=== PATIENT | female | born 1995 | race Caucasian/White ===

== ENCOUNTER → 2016-09-15 | Outpatient (CLI) | payer MEDICAID ==
--- NOTE | 2016-09-01 15:08 | US ---
EXAMINATION TYPE: US OB anatomy transabd second trimester DATE OF EXAM: 09/01/2016 2:18 PM COMPARISON: OB ultrasound July 14, 2016 first trimester HISTORY: LGA TECHNIQUE: Transabdominal (TA) pelvic ultrasound EXAM MEASUREMENTS: GESTATIONAL AGE / DATING Physician Established: (19 weeks/3 days) EDC: 01/23/17 Dates by LMP: unknown Dates by First Scan: (20 weeks/0 days) EDC: 01/19/17 Dates by Current Scan for: (20 weeks/1 days) EDC: 01/18/17 SURVEY IUP: Single PLACENTA: Anterior PREVIA: No previa CAROL: 10.7 cm Normal CERVICAL LENGTH (transabdominal: norm > 3.0cm): 4.1 cm BIOMETRY PRESENTATION: Variable LIE: Transverse lie with head maternal LT BPD: 4.5 cm 19 weeks / 5 days HC: 17.4 cm 20 weeks / 0 days AC: 15.1 cm 20 weeks / 3 days FL: 3.2 cm 20 weeks / 0 days ESTIMATED WEIGHT IN GRAMS: 333 grams ESTIMATED WEIGHT IN LBS/OZS: 0 lbs. 12 oz. WEIGHT PERCENTAGE BASED ON ESTABLISHED DATE: 84 % HC/AC: 1.15 FL/AC: 21% HEART RATE: 147 bpm RHYTHM: Normal ANATOMY SEEN (within normal limits): * Lateral Vent (< 1 cm) 0.6 cm * Cisterna Magna (< 1.1 cm) 0.4 cm * Nuchal Fold (< 0.6 cm) 0.3 cm * Cerebellum (varies with age) 1.8 cm Choroid Plexus (bilateral) Midline Falx Cavus Septi Pellucidi Four Chamber Heart Outflow tracts: LVOT/RVOT Stomach Situs Nose / Lips Diaphragm Kidneys (bilateral) Bladder Cord Insert Three Vessel Cord Arms (bilateral) Legs (bilateral) ANATOMY NOT SEEN: due to position Longitudinal Spine Transverse Spine TECHNOLOGIST IMPRESSION: Single viable IUP 20wks/1day with TAY of 01/18/17. Patient scheduled for OB callback 09/15/16 at 2:20 to image spine Single live intrauterine gestation is present. heart tones are regular and measure 147 bpm whic h is within normal limits. A variable presentation to fetus is currently seen. There is no ultrasound evidence for placenta previa. Amniotic fluid index is within normal limits. biometry measureme nts as above are within normal limits. Detailed anatomical survey shows no suspicious abnormality dur ing real-time scanning per technologist. Suboptimal evaluation of spine on 2 planes is noted due to f etal positioning. Kidneys are somewhat difficult to visualize on still images saved. IMPRESSION: As above
--- NOTE | 2016-09-15 15:39 | US ---
EXAMINATION TYPE: US OB Call Back DATE OF EXAM: 09/15/2016 3:06 PM COMPARISON: Prior OB ultrasound September 01, 2016. CLINICAL HISTORY: OB CALL BACK. GESTATIONAL AGE / DATING Dates by Initial Survey Scan: (19 weeks/3 days) EDC: 01/23/2017 HEART RATE: 144 bpm RHYTHM: Normal ANATOMY SEEN (second anatomic survey look): Longitudinal Spine: seen wnl Transverse Spine: seen wnl TECHNOLOGIST IMPRESSION: Single live intrauterine gestation is redemonstrated. On today's study real-time imaging of the spine appeared within normal limits. Saved images appear unremarkable. IMPRESSION: As above.
== END | disposition home or self-care (01) ==
LOC: RADUSWWP 09-01 13:23
PROVIDERS: ATTEND Obstetrics & Gynecology
DX: O36.62X0 Maternal care for excessive fetal growth, second trimester, not applicable or unspecified (principal); Z3A.19 19 weeks gestation of pregnancy
CPT/HCPCS: 76811

== ENCOUNTER → 2016-10-13 | Outpatient (CLI) | payer MEDICAID ==
[2016-10-13 13:04] LABS: CH 31.6; CHCM 35.5; HCT 32.5 % (34.0-46.0); HDW 3.24; MCH 30.2 pg (25.0-35.0); MCHC 33.7 g/dL (31.0-37.0); MCV 89.6 fL (80.0-100.0); Mean Platelet Volume 8.5; RBC 3.63 m/uL (3.80-5.40); RDW 14.3 % (11.5-15.5); WBC 9.6 k/uL (3.8-10.6)
== END | disposition home or self-care (01) ==
LOC: LABWHC1 11:47
PROVIDERS: ATTEND Obstetrics & Gynecology
DX: Z34.02 Encounter for supervision of normal first pregnancy, second trimester (principal); Z3A.00 Weeks of gestation of pregnancy not specified
CPT/HCPCS: 36415; 82950; 85027

== ENCOUNTER → 2016-10-19 | Outpatient (CLI) | payer MEDICAID ==
[2016-10-19 12:51] LABS: Glucose 3 Hour, Gest 94 mg/dL
== END | disposition home or self-care (01) ==
LOC: LABWHC1 08:36
PROVIDERS: ATTEND Obstetrics & Gynecology
DX: O99.810 Abnormal glucose complicating pregnancy (principal); Z3A.00 Weeks of gestation of pregnancy not specified
CPT/HCPCS: 36415; 82951; 82952

== ENCOUNTER → 2016-11-22 | Outpatient (CLI) | payer MEDICAID ==
--- NOTE | 2016-11-22 22:34 | US ---
EXAMINATION TYPE: US OB anatomy transabd DATE OF EXAM: 11/22/2016 5:06 PM COMPARISON: NONE HISTORY: 21-year-old female O26.13 Insufficient maternal weight gain TECHNIQUE: Transabdominal (TA) EXAM MEASUREMENTS: GESTATIONAL AGE / DATING Physician Established: (31 weeks/1 day) EDC: 01/23/2017 Dates by LMP: unknown Dates by First Scan: (31 weeks/5 days) EDC: 01/19/2017 Dates by Current Scan for: (32 weeks/1 day) EDC: 01/16/2017 SURVEY IUP: Single PLACENTA: Anterior PREVIA: No previa CAROL: 18.4 cm Normal CERVICAL LENGTH (transabdominal: norm > 3.0cm): 4.7 cm BIOMETRY PRESENTATION: Vertex LIE: Longitudinal BPD: 82 cm 33 weeks / 0 days HC: 29.9 cm 33 weeks / 1 day AC: 28.9 cm 33 weeks / 0 days FL: 6.1 cm 31 weeks / 4 days ESTIMATED WEIGHT IN GRAMS: 2004 grams ESTIMATED WEIGHT IN LBS/OZ: 4 lbs. 7 oz. WEIGHT PERCENTAGE BASED ON ESTABLISHED DATE: 84 % (vs 84% on 09/01/16). HC/AC: 1.03 Normal FL/AC: 20.99 Normal HEART RATE: 140 bpm RHYTHM: Normal ANATOMY SEEN (within normal limits): Lateral Vent (< 1 cm) 0.8 cm Cerebellum (varies with age) 3.9 cm Choroid Plexus (bilateral) Midline Falx Cavus Septi Pellucidi Four Chamber Heart Stomach Situs Nose / Lips Diaphragm Kidneys (bilateral) Bladder Three Vessel Cord ANATOMY NOT SEEN OR SUBOPTIMALLY VISUALIZED due to bone shadowing or crowding in third trimeste r: Cisterna Magna (< 1.1 cm) Longitudinal Spine as S Spine not seen Transverse Spine Arms (bilateral) Legs (bilateral) - femur opposite poorly seen. Outflow tracts: LVOT/RVOT Cord Insert MAGNETO REPAIRER NOTES: Single, viable, IUP, 32 weeks/1 day, EDC: 01/16/2017; HR 140BPM. IMPRESSION: Single live intrauterine with established gestational age of 31 weeks 1 day. Current ultras ound biometry is larger but concordant (32 weeks 1 day) placing the child at the 84th percentile for weight. There has been appropriate interval growth from 09/01/2016 with stable weight percentile.
== END ==
LOC: RADUSWWP 16:21
PROVIDERS: ATTEND Obstetrics & Gynecology
DX: O26.13 Low weight gain in pregnancy, third trimester (principal); Z3A.32 32 weeks gestation of pregnancy
CPT/HCPCS: 76811

== ENCOUNTER → 2016-12-22 | Outpatient (CLI) | payer MEDICAID, OTHER ==
--- NOTE | 2016-12-22 12:19 | US ---
EXAMINATION TYPE: US OB anatomy transabd DATE OF EXAM: 12/22/2016 9:35 AM COMPARISON: 11/22/2016 HISTORY: 21-year-old female [id number] Large for dates 3rd trimester. LGA, pt has no complaints at th is time TECHNIQUE: Transabdominal (TA) FINDINGS: EXAM MEASUREMENTS: GESTATIONAL AGE / DATING Physician Established: (35 weeks/3 days) EDC: 01/23/2017 Dates by LMP: Unknown Dates by First Scan: (36 weeks/0 days) EDC: 01/19/2017 Dates by Current Scan for: (36 weeks/3 days, appropriate interval growth from 11/22/16) EDC: 01/16/2017 SURVEY IUP: Single PLACENTA: Anterior PREVIA: No previa CAROL: 13.3 cm Normal CERVICAL LENGTH (transabdominal: norm > 3.0cm): 3.1 cm BIOMETRY PRESENTATION: Vertex BPD: 9.2 cm 37 weeks / 3 days HC: 32.6 cm 36 weeks / 6 days AC: 31.9 cm 35 weeks / 6 days FL: 7.0 cm 35 weeks / 5 days ESTIMATED WEIGHT IN GRAMS: 2850 grams ESTIMATED WEIGHT IN LBS/OZS: 6 lbs. 5 oz. WEIGHT PERCENTAGE BASED ON ESTABLISHED DATE: 68.2 % vs (84%, previously) HC/AC: 1.02 Normal FL/AC: 22 Normal HEART RATE: 146 bpm RHYTHM: Normal ANATOMY SEEN (within normal limits): Lateral Vent (< 1 cm) 0.5 cm Midline Falx Cavus Septi Pellucidi Four Chamber Heart Outflow tracts: LVOT Stomach Situs Nose / Lips Diaphragm Kidneys (bilateral) Bladder Three Vessel Cord ANATOMY NOT SEEN OR SUBOPTIMALLY VISUALIZED: Cisterna Magna (< 1.1 cm) Cerebellum (varies with age) Choroid Plexus (bilateral) RVOT Cord Insert Arms (bilateral) Legs (bilateral) Longitudinal Spine (skin line not well delineated) Transverse Spine HOSPITAL RECEIVING CLERK NOTES: Single, viable IUP/ Growth parameters wnl/ No abnormality seen at this time IMPRESSION: Single live intrauterine with established gestational age of 35 weeks 3 days. Current ultra sound biometry (36 weeks 3 days) remains one week larger but still concordant and with growth from exactly as expected.
== END | disposition home or self-care (01) ==
LOC: RADUSWWP 08:55
PROVIDERS: ATTEND Obstetrics & Gynecology
DX: O36.63X0 Maternal care for excessive fetal growth, third trimester, not applicable or unspecified (principal); Z3A.35 35 weeks gestation of pregnancy
CPT/HCPCS: 76811

== ENCOUNTER 2017-01-23 05:27 | Inpatient (IN) | payer MEDICAID, OTHER ==
[2017-01-23] MEDS ORDERED: METHYLERGONOVINE 0.2 MG/ML 1 ML AMP IM PRN (05:37)
[2017-01-23] MEDS ORDERED: OXYTOCIN 20 UNITS/1000 ML NS 1,000 ML IV SCH (05:37)
[2017-01-23] MEDS ORDERED: LIDOCAINE 1% (PF) 10 MG/ML (30 ML SDV) SQ PRN (05:37)
[2017-01-23] MEDS ORDERED: TERBUTALINE 1 MG/ML VIAL SQ PRN (05:37)
[2017-01-23] MEDS ORDERED: OXYTOCIN 10 UNIT/ML 1 ML VIAL IM PRN (05:37)
[2017-01-23] MEDS ORDERED: CARBOPROST TROMETHAMINE 250 MCG/ML 1 ML AMP IM PRN (05:37)
[2017-01-23] MEDS: LACTATED RINGERS 1,000 ML IV SCH ×2 (05:46→10:40)
[2017-01-23 05:51] LABS: Aty Lym Flag Slight; CH 31.4; CHCM 35.8; HCT 38.3 % (34.0-46.0); HDW 3.03; HGB 13.1 gm/dL (11.4-16.0); MCH 30.3 pg (25.0-35.0); MCHC 34.3 g/dL (31.0-37.0); MCV 88.4 fL (80.0-100.0); Mean Platelet Volume 8.6; RBC 4.33 m/uL (3.80-5.40); RDW 14.3 % (11.5-15.5); WBC 11.3 k/uL (3.8-10.6); WBC (Perox) 11.91
--- NOTE | 2017-01-23 06:11 | P.HPOB ---
History of Present Illness H&P Date: 01/23/17 Chief Complaint: Patient is presenting for requested induction of labor. This patient is a pleasant 21-year-old 1 para 0 female estimated date of confinement 01/23/2017 estimated gestational age 40-0/7 weeks who presents to labor and delivery for requested induction of labor. Patient's care has been uncomplicated with the exception of low maternal weight gain. Patient's had normal growth ultrasounds and no other complications. Review of Systems Constitutional: Denies chills, Denies fever Ears, nose, mouth and throat: Denies headache, Denies sore throat Cardiovascular: Denies chest pain, Denies shortness of breath Respiratory: Denies cough Gastrointestinal: Reports heartburn Genitourinary: Reports Menstruation: Reports amenorrhea Musculoskeletal: Denies myalgias Integumentary: Denies pruritus, Denies rash Neurological: Denies numbness, Denies weakness Psychiatric: Denies anxiety, Denies depression Past Medical History Additional Past Medical History / Comment(s): 02/02/15 Pt presented to [facility] ER with c/o severe RLQ abdominal pain. Other HX: polycystic ovaries, epistaxis. History of Any Multi-Drug Resistant Organisms: None Reported Past Surgical History: Adenoidectomy, Tonsillectomy Additional Past Surgical History / Comment(s): tonsillectomy/adenoidectomy with anterior/septal cauterization. Past Anesthesia/Blood Transfusion Reactions: No Reported Reaction Past Psychological History: No Psychological Hx Reported Smoking Status: Never smoker Past Alcohol Use History: None Reported Past Drug Use History: None Reported - Past Family History Brother(s) Family Medical History: Hypertension Additional Family Medical History / Comment(s): 1 kidney Father Family Medical History: No Reported History Mother Family Medical History: No Reported History Medications and Allergies Home Medications Medication Instructions Recorded Confirmed Type Pnv,Calcium 72/Iron/Folic Acid 1 tab PO DAILY 01/23/17 01/23/17 History [ Plus Tablet] Allergies Allergy/AdvReac Type Severity Reaction Status Date / Time naproxen AdvReac Nausea & Verified 01/23/17 05:36 Vomiting Exam - Vital Signs Vital signs: Vital Signs Temp Pulse Resp BP Pulse Ox 01/23/17 05:38 96.6 F L 100 16 137/91 100 Intake and Output 01/22/17 01/22/1717 14:59 22:59 06:59 Other: Weight 73.936 kg Patient Weight 01/23/17 06:59 Weight 73.936 kg - OBG Physical Exam Abdomen: bowel sounds normal, no diffuse tenderness, no bruit present, no guarding noted, no hepatomegaly, no splenomegaly, no mass Vulva: both: normal Vagina: normal moisture, no discharge Cervix: no lesion (Cervix is 1-2 cm dilated 50% effaced.), no discharge Uterus: enlarged (Fundal height is consistent with a term .) Results blood work shows she is A positive, rubella immune, RPR is nonreactive , hepatitis B is negative, group B strep was negative, Glucola was abnormal with a normal three-hour gtt. Ultrasounds have shown normal growth. Result Diagrams: 01/23/17 05:41 Abnormal Lab Results - Last 24 Hours (Table) 01/23/17 Range/Units 05:41 WBC 11.3 H (3.8-10.6) k/uL Assessment and Plan (1) Third trimester Narrative/Plan: This is a pleasant 21-year-old 1 para 0 female 40-0/7 weeks gestation admitted to labor and delivery for requested induction of labor. Plan is induction of labor and anticipate vaginal delivery. Status: Acute
[2017-01-23 06:25] LABS: Add Differential Manual Differential
[2017-01-23 06:27] LABS: Manual Review Performed; Nucleated Red Blood Cells 0 /100 WBC (0-0); Reactive Lymphocytes Present; Total Cells Counted 100
[2017-01-23] MEDS ORDERED: BUTORPHANOL 1 MG/ML 1 ML VIAL IV PRN (08:39)
[2017-01-23] MEDS ORDERED: SODIUM CHLORIDE 0.9% 100 ML BAG ONE (10:45)
[2017-01-23] MEDS ORDERED: BUPIVACAINE (PF) 0.25% 30 ML VIAL ONE (10:45)
[2017-01-23] MEDS ORDERED: fentaNYL (PF) 50 MCG/ML 5 ML AMP ONE (10:45)
[2017-01-23] MEDS ORDERED: BUPIVACAINE (PF) 0.25% 25 ML, fentaNYL (PF) 200 MCG in SODIUM CHLORIDE 0.9% 71 ML EPIDURAL ONE (11:25)
[2017-01-23] MEDS ORDERED: diphenhydrAMINE 50 MG/ML 1 ML VIAL IVP PRN (17:11)
[2017-01-23] MEDS ORDERED: HYDROCORTISONE 2.5% RECTAL CREAM 30 GM TUBE RECTAL PRN (17:11)
[2017-01-23] MEDS ORDERED: diphenhydrAMINE 25 MG CAP PO PRN (17:11)
[2017-01-23] MEDS ORDERED: SIMETHICONE 80 MG CHEWABLE PO PRN (17:11)
[2017-01-23] MEDS ORDERED: BENZOCAINE/MENTHOL SPRAY 1 GM/SPRAY AEROSOL TOPICAL PRN (17:11)
[2017-01-23] MEDS ORDERED: LANOLIN CREAM 5 GM TUBE TOPICAL PRN (17:11)
[2017-01-23] MEDS ORDERED: Acetaminophen-Codeine 300-30mg TAB PO PRN ×2 (17:11)
[2017-01-23] MEDS ORDERED: ZOLPIDEM 5 MG TAB PO PRN (17:11)
[2017-01-23] MEDS ORDERED: ACETAMINOPHEN TAB 325 MG TAB PO PRN (17:11)
[2017-01-23] MEDS ORDERED: WITCH HAZEL 1 EACH MED..PAD TOPICAL PRN (17:11)
[2017-01-23] MEDS ORDERED: BISACODYL 10 MG SUPP RECTAL PRN (17:11)
--- NOTE | 2017-01-23 17:25 | P.PROBDLV ---
Vaginal Delivery Note - . Vaginal Delivery Note: Normal vaginal delivery viable male infant Apgars are 8 and 9 delivery time is 1701 hrs. . Please see dictated H&P for intimate details of this patient's admission. Brief summary is a pleasant 21-year-old 1 para 0 female 40-0/7 weeks gestation admitted to labor and delivery for induction of labor. Patient is admitted and has artificial rupture membranes at 2 cm dilated for clear fluid. Labor is induced with Pitocin per protocol. Patient does receive an epidural for pain relief. Patient's labor progresses quickly she gets to complete. Patient pushes for approximately 15 minutes and pushes the head to the perineum. Posterior perineum was infiltrated with 1% lidocaine. And a midline episiotomy is made. We then have controlled delivery of the infant's head over the perineum. Mouth and nares are bulb suctioned. There is no evidence of nuchal cord. With gentle downward traction we then have deliver the anterior and posterior shoulder and rest this infant's body. This is a vigorous viable male infant Apgars are 8 and 9 delivery time is 1701 hrs. After delivery of the the umbilical cord is doubly clamped and cut it appears to be trivascular. The placenta is then spontaneously delivered intact. Estimated blood loss is 100 mL. Inspection of perineum shows a second-degree laceration which is repaired with 3-0 Vicryl usual fashion. Excellent reapproximation is noted. All counts are correct 3. There are no complications. and mother are stable delivery room.
[2017-01-23] MEDS: IBUPROFEN 600 MG TAB PO PRN (17:36)
[2017-01-23] MEDS: SENNOSIDES-DOCUSATE SODIUM 1 EACH TAB PO SCH ×2 (18:34→21:28)
[2017-01-23 19:52] VITALS: RESP 16
[2017-01-24] MEDS: IBUPROFEN 600 MG TAB PO PRN ×3 (00:05→13:22)
--- NOTE | 2017-01-24 06:53 | P.PNOBGVD ---
Subjective - Subjective Patient reports: Reports appetite normal, Reports voiding normally, Reports pain well controlled, Reports ambulating normally : doing well Objective - Latest Vital Signs Latest vital signs: Vital Signs Temp Pulse Resp BP Pulse Ox 01/24/17 04:00 97.5 F L 77 16 122/72 01/24/17 00:00 98.1 F 97 16 126/80 01/23/17 20:00 98.1 F 84 16 116/66 01/23/17 19:23 98.7 F 78 16 119/67 100 01/23/17 18:53 98 17 108/57 01/23/17 18:23 99 19 107/59 01/23/17 18:08 100 16 113/67 01/23/17 17:53 107 H 18 114/62 01/23/17 17:38 116 H 17 109/64 01/23/17 17:23 97.2 F L 109 H 16 124/60 100 Intake and Output 01/23/17 01/23/17 01/24/17 14:59 22:59 06:59 Intake Total 39.25 Output Total 100 250 Balance -100 -210.75 Intake: Intake, IV Titration 39.25 Amount Oxytocin 20 Units/1000 ml 39.25 Ns 1,000 ml @ 1 MILLIUNIT/MIN 3 mls/hr IV .Q24H [facility] Rx#:[id number] Output: Urine 100 250 Other: # Voids 1 1 1 # Bowel Movements 0 - Exam Lungs: bilateral: normal Chest: Normal S1, Normal S2 Extremities: Present: normal Abdomen: Present: normal appearance, soft Uterus: Present: normal, firm Assessment and Plan (1) Third trimester Narrative/Plan: day #1. Patient is resting without complaints and wishes to go home. Vital signs are stable and she is afebrile. Uterus is firm nontender she 's having normal lochia. I impression is a normal course. Patient wishes to go home today is felt to be stable for discharge home follow up with me in 6 weeks. Current Visit: Yes Status: Acute Code(s): Z33.1 - STATE, INCIDENTAL SNOMED Code(s): 73829960
--- NOTE | 2017-01-24 06:55 | P.DS ---
Providers Date of admission: 01/23/17 05:27 Expected date of discharge: 01/24/17 Attending physician: Carlos Jacobsen Primary care physician: Stated None - Discharge Diagnosis(es) (1) Third trimester Current Visit: Yes Status: Acute Hospital Course: Please see dictated H&P for intimate details of this patient's admission. Brief summary is a pleasant 21-year-old 1 para 0 female 40-0/7 weeks gestation admitted to labor and delivery for elective induction of labor. Patient is admitted she is uncomplicated induction of labor subsequent was on have a vaginal delivery viable male infant. Please see dictated delivery note. day 1 patient's felt be stable for discharge home follow up with me in 6 weeks. Procedures: Induction of labor and normal vaginal delivery. Patient Condition at Discharge: Good Plan - Discharge Summary New Discharge Prescriptions: New Acetaminophen-Codeine 300-30mg [Tylenol w/codeine #3] 1 - 2 each PO Q4HR PRN #30 tab PRN Reason: Mild Pain exceeding Tylenol Ibuprofen [Motrin] 600 mg PO Q6HR PRN #40 tab PRN Reason: Mild Pain Or Fever >= 100.5 No Action Pnv,Calcium 72/Iron/Folic Acid [ Plus Tablet] 1 tab PO DAILY Discharge Medication List Pnv,Calcium 72/Iron/Folic Acid [ Plus Tablet] 1 tab PO DAILY 01/23/17 [ History] Acetaminophen-Codeine 300-30mg [Tylenol w/codeine #3] 1 - 2 each PO Q4HR PRN # 30 tab 01/24/17 [Rx] Ibuprofen [Motrin] 600 mg PO Q6HR PRN #40 tab 01/24/17 [Rx] Follow up Appointment(s)/Referral(s): Carlos Jacobsen MD [STAFF PHYSICIAN] - 03/12/17 10:15 am Patient Instructions/Handouts: Vaginal Delivery (DC) Activity/Diet/Wound Care/Special Instructions: No intercourse or anything per vagina for 6 weeks. Please call if any fever, chills, excessive vaginal bleeding, and/or abdominal pain. Discharge Disposition: HOME SELF-CARE
[2017-01-24 16:25] VITALS: BP 137/73; PULSE 87; TEMP 98.2
== END 2017-01-24 18:10 | disposition home or self-care (01) | DRG 775 ==
LOC: 4FBP 05:27
PROVIDERS: ADMIT Obstetrics & Gynecology; ATTEND Obstetrics & Gynecology
PROC: 10E0XZZ Delivery of Products of Conception, External Approach (ICD-10-PCS; principal; 2017-01-23)
PROC: 0KQM0ZZ Repair Perineum Muscle, Open Approach (ICD-10-PCS; 2017-01-23)
PROC: 0W8NXZZ Division of Female Perineum, External Approach (ICD-10-PCS; 2017-01-23)
PROC: 10907ZC Drainage of Amniotic Fluid, Therapeutic from Products of Conception, Via Natural or Artificial Opening (ICD-10-PCS; 2017-01-23)
PROC: 3E033VJ Introduction of Other Hormone into Peripheral Vein, Percutaneous Approach (ICD-10-PCS; 2017-01-23)
PROC: 00HU33Z Insertion of Infusion Device into Spinal Canal, Percutaneous Approach (ICD-10-PCS; 2017-01-23)
PROC: 3E0R3CZ (ICD-10-PCS; 2017-01-23)
DX: O70.1 Second degree perineal laceration during delivery (principal); Z37.0 Single live birth; E28.2 Polycystic ovarian syndrome; Z3A.40 40 weeks gestation of pregnancy; Z79.899 Other long term (current) drug therapy
CPT/HCPCS: 85025; 88307

== ENCOUNTER → 2018-11-04 | Outpatient (CLI) | payer MEDICAID, BC ==
[2018-11-04 12:14] LABS: HCT 40.6 % (34.0-46.0); HGB 14.4 gm/dL (11.4-16.0); MCH 29.3 pg (25.0-35.0); MCHC 35.5 g/dL (31.0-37.0); MCV 82.5 fL (80.0-100.0); Mean Platelet Volume 7.9; Platelet Count 236 k/uL (150-450); RBC 4.92 m/uL (3.80-5.40); RDW 13.6 % (11.5-15.5); WBC 6.3 k/uL (3.8-10.6)
[2018-11-04 16:36] LABS: Albumin 4.7 g/dL (3.80-4.90); Albumin/Globulin Ratio 2.24 (1.60-3.17); Anion Gap 9.9 mmol/L (4.00-12.00); Calcium 9.5 mg/dL (8.7-10.3); Carbon Dioxide 23.1 mmol/L (21.6-31.8); Globulin 2.1 g/dL (1.6-3.3); LDL Cholesterol,Calculated 69.4 mg/dL (0.0-131.0); Potassium 4.8 mmol/L (3.5-5.5); Total Bilirubin 0.7 mg/dL (0.2-1.2); Total Protein 6.8 g/dL (6.2-8.2); VLDL Calculation 17.6 mg/dL (5.00-40.00)
[2018-11-04 20:17] LABS: Hemoglobin A1C 4.8 % (4.0-6.0)
== END | disposition home or self-care (01) ==
LOC: LABWHC1 11:00
PROVIDERS: ATTEND Family Medicine
DX: G43.909 Migraine, unspecified, not intractable, without status migrainosus (principal); R73.9 Hyperglycemia, unspecified
CPT/HCPCS: 36415; 80053; 80061; 83036; 84681; 85027

== ENCOUNTER 2019-09-17 05:54 | Inpatient (IN) | payer BC, OTHER ==
[2019-09-17] MEDS ORDERED: TERBUTALINE 1 MG/ML VIAL SQ PRN (06:04)
[2019-09-17] MEDS ORDERED: OXYTOCIN 10 UNIT/ML 1 ML VIAL IM PRN (06:04)
[2019-09-17] MEDS ORDERED: CARBOPROST TROMETHAMINE 250 MCG/ML 1 ML AMP IM PRN (06:04)
[2019-09-17] MEDS ORDERED: OXYTOCIN 30 UNITS/500 ML NS 30 UNIT in SALINE 1 500ML.BAG IV SCH (06:04)
[2019-09-17] MEDS ORDERED: METHYLERGONOVINE 0.2 MG/ML 1 ML AMP IM PRN (06:04)
[2019-09-17] MEDS ORDERED: LIDOCAINE 0.5% (PF) 5 MG/ML (50 ML SDV) SQ PRN (06:04)
--- NOTE | 2019-09-17 06:08 | P.HPOB ---
History of Present Illness H&P Date: 09/17/19 Chief Complaint: Requested induction of labor This patient is a pleasant 24-year-old 2 para 1 female estimated date of confinement 09/21/2019 estimated gestational age 39-3/7 weeks who presents to labor and delivery for requested induction of labor. Patient's care has been uncomplicated with the exception of low maternal weight gain. She's had normal growth ultrasounds. Patient did have some shortness of breath or palpitations this but evaluation by cardiology showed a normal echo and EKG. Review of Systems Genitourinary: Reports Menstruation: Reports amenorrhea Past Medical History Additional Past Medical History / Comment(s): Other HX: polycystic ovaries, epistaxis. History of Any Multi-Drug Resistant Organisms: None Reported Past Surgical History: Adenoidectomy, Tonsillectomy Additional Past Surgical History / Comment(s): tonsillectomy/adenoidectomy with anterior/septal cauterization. Past Anesthesia/Blood Transfusion Reactions: No Reported Reaction Past Psychological History: No Psychological Hx Reported Smoking Status: Never smoker Past Alcohol Use History: None Reported Past Drug Use History: None Reported - Past Family History Brother(s) Family Medical History: Hypertension Additional Family Medical History / Comment(s): 1 kidney Father Family Medical History: No Reported History Mother Family Medical History: No Reported History Medications and Allergies Home Medications Medication Instructions Recorded Confirmed Type Pnv,Calcium 72/Iron/Folic Acid 1 tab PO DAILY 01/23/17 01/23/17 History [ Plus Tablet] Acetaminophen-Codeine 300-30mg 1 - 2 each PO Q4HR PRN #30 tab 01/24/17 Rx [Tylenol w/codeine #3] Ibuprofen [Motrin] 600 mg PO Q6HR PRN #40 tab 01/24/17 Rx Allergies Allergy/AdvReac Type Severity Reaction Status Date / Time naproxen AdvReac Nausea & Verified 01/23/17 05:36 Vomiting Exam - OBG Physical Exam Abdomen: bowel sounds normal Vulva: both: normal Vagina: normal moisture, no discharge Cervix: no lesion (Cervix is 2 cm and soft in the office.), no discharge Uterus: enlarged (Fundal height 38 cm) Results blood work shows she is A+, rubella immune, RPR nonreactive, hepatitis B negative, Glucola was normal, group B strep was negative, most recent ultrasound showed normal growth. Assessment and Plan Assessment: This is a pleasant 24-year-old 2 para 1 female 39-3/7 weeks gestation admitted to labor and delivery for requested induction of labor. Plan is induction of labor and anticipate vaginal delivery. (1) 39 weeks gestation of Current Visit: Yes Status: Acute Code(s): Z3A.39 - 39 WEEKS GESTATION OF SNOMED Code(s): 81513223 (2) Elective induction of labor planned Current Visit: Yes Status: Acute Code(s): [id number] - SNOMED Code(s): 201204357
[2019-09-17] MEDS: LACTATED RINGERS 1,000 ML IV SCH ×3 (06:24→13:45)
[2019-09-17 06:53] LABS: HCT 29.5 % (34.0-46.0); MCH 27.8 pg (25.0-35.0); MCV 81.6 fL (80.0-100.0); Mean Platelet Volume 9.3; Platelet Count 168 k/uL (150-450); Poikilocytosis Moderate; RBC 3.62 m/uL (3.80-5.40); WBC 7.4 k/uL (3.8-10.6)
[2019-09-17 07:05] LABS: Lymphocytes # (M) 2.37 k/uL (1.0-4.8); Neutrophils # (M) 5.03 k/uL (1.3-7.7); Neutrophils % (M) 68 %; Nucleated Red Blood Cells 0 /100 WBC (0-0); Poikilocytosis (M) Present; Total Cells Counted 100
[2019-09-17] MEDS ORDERED: BUTORPHANOL 1 MG/ML 1 ML VIAL IV PRN (11:27)
[2019-09-17] MEDS ORDERED: ONDANSETRON 4 MG/2 ML VIAL IVP STA (11:32)
[2019-09-17] MEDS ORDERED: ROPIVACAINE 100 MG, fentaNYL (PF) 200 MCG in SODIUM CHLORIDE 0.9% 76 ML EPIDURAL ONE (14:21)
[2019-09-17] MEDS ORDERED: ZOLPIDEM 5 MG TAB PO PRN (15:01)
[2019-09-17] MEDS ORDERED: diphenhydrAMINE 50 MG/ML 1 ML VIAL IVP PRN (15:01)
[2019-09-17] MEDS ORDERED: BENZOCAINE/MENTHOL SPRAY 1 GM/SPRAY AEROSOL TOPICAL PRN (15:01)
[2019-09-17] MEDS ORDERED: WITCH HAZEL 1 EACH MED..PAD TOPICAL PRN (15:01)
[2019-09-17] MEDS ORDERED: LANOLIN CREAM 5 GM TUBE TOPICAL PRN (15:01)
[2019-09-17] MEDS ORDERED: diphenhydrAMINE 25 MG CAP PO PRN (15:01)
[2019-09-17] MEDS ORDERED: BISACODYL 10 MG SUPP RECTAL PRN (15:01)
[2019-09-17] MEDS ORDERED: SIMETHICONE 80 MG CHEWABLE PO PRN (15:01)
[2019-09-17] MEDS ORDERED: HYDROCORTISONE 2.5% RECTAL CREAM 30 GM TUBE RECTAL PRN (15:01)
[2019-09-17] MEDS ORDERED: OXYTOCIN 20 UNITS/1000 ML NS 1,000 ML IV SCH (15:01)
[2019-09-17] MEDS ORDERED: ACETAMINOPHEN TAB 325 MG TAB PO PRN (15:01)
--- NOTE | 2019-09-17 17:11 | P.PROBDLV ---
Vaginal Delivery Note - . Vaginal Delivery Note: Normal vaginal delivery viable female Apgars 9 and 10 delivery time is 1433 hrs. Please see dictated H&P for intimate details of this patient's admission. Brief summary this is a pleasant 24-year-old 2 para 1 female 39-3/7 weeks gestation is admitted this morning for elective induction of labor. On admission patient is 2-3 cm dilated has artificial rupture membranes for clear fluid. She has Pitocin augmentation of labor. Patient does progress, patient received one dose of intrapartum Stadol and then an epidural for pain control. Patient's labor progresses quickly thereafter and she gets to complete. She pushes the head to the perineum and the posterior perineum is supported and we have controlled delivery of infant's head over the intact perineum. Mouth and nares are bulb suctioned. There is no evidence of a nuchal cord. With gentle downward traction we then have delivery the anterior posterior shoulder and rest this infant's body. This is a vigorous viable female infant. Mother does have a history of jaundice with her first baby therefore the cord was immediately doubly clamped and cut This is a viable male infant Apgars 9 and 10 delivery time was 1433 hrs. After delivery of the the for senna spontaneously delivered intact. Estimated blood loss time of delivery is 200 mL. There are no lacerations and no repair. No complications. and mother stable delivery room. Addendum: Patient is an episode of atony A hour to after delivery and therefore was given one dose of Methergine. There appears to be no other source of her bleeding has subsided with massage and the Methergine. Continue to watch closely.
[2019-09-17] MEDS ORDERED: ONDANSETRON 4 MG/2 ML VIAL IVP PRN (17:57)
[2019-09-17] MEDS: SENNOSIDES-DOCUSATE SODIUM 1 EACH TAB PO SCH ×2 (19:32→20:23)
[2019-09-17] MEDS: IRON AG/C/B12/CA/SUC.ACID/STOM 1 EACH TAB PO SCH (19:33)
[2019-09-18] MEDS: IBUPROFEN 600 MG TAB PO PRN ×2 (00:12→10:27)
--- NOTE | 2019-09-18 06:12 | P.PNOBGVD ---
Subjective - Subjective Patient reports: Reports appetite normal, Reports voiding normally, Reports pain well controlled, Reports ambulating normally : doing well Objective - Latest Vital Signs Latest vital signs: Vital Signs Temp Pulse Resp BP Pulse Ox 09/18/19 00:00 98 F 68 15 106/66 97 09/17/19 20:00 98 F 99 15 115/74 98 09/17/19 16:40 83 18 135/70 09/17/19 16:10 98.0 F 87 18 112/63 09/17/19 15:39 98.0 F 18 112/62 09/17/19 15:25 89 17 115/70 09/17/19 15:09 98 17 115/60 09/17/19 14:56 88 17 123/64 09/17/19 14:39 96.6 F L 85 18 128/59 Intake and Output 09/17/19 09/17/19 09/18/19 14:59 22:59 06:59 Intake Total 2000 Output Total 714 Balance 1999 - Intake: Intake, IV Titration 2000 Amount Lactated Ringers 1,000 ml 2000 @ 125 mls/hr IV .Q8H [facility] Rx#:[id number] Output: Estimated Blood Loss 714 Other: # Voids 4 - Exam Lungs: bilateral: normal Chest: Normal S1, Normal S2 Extremities: Present: normal Abdomen: Present: normal appearance, soft Uterus: Present: normal, firm - Labs Labs: Abnormal Lab Results - Last 24 Hours (Table) 09/17/19 Range/Units 06:24 RBC 3.62 L (3.80-5.40) m/uL Hgb 10.0 L (11.4-16.0) gm/dL Hct 29.5 L (34.0-46.0) % Assessment and Plan Assessment: day #1. Patient is without complaints and wishes to go home. Vital signs are stable and she is afebrile. Her predelivery hemoglobin yesterday was 10.0 and she did have estimated blood loss around 400- 500 mL therefore and check a CBC today. Patient however is most definitely stable to go home. She may need to stay because her baby's bilirubin. Uterus is firm nontender she's having normal lochia. Plan today is to continue routine care, check a CBC, discharge home later today if she wishes. (1) 39 weeks gestation of Current Visit: Yes Status: Acute Code(s): Z3A.39 - 39 WEEKS GESTATION OF SNOMED Code(s): 76542399 (2) Elective induction of labor planned Current Visit: Yes Status: Acute Code(s): [id number] - SNOMED Code(s): 819365426
--- NOTE | 2019-09-18 06:16 | P.DS ---
Providers Date of admission: 09/17/19 05:54 Expected date of discharge: 09/18/19 Attending physician: Carlos Jacobsen Primary care physician: Stated None - Discharge Diagnosis(es) (1) 39 weeks gestation of Current Visit: Yes Status: Acute (2) Elective induction of labor planned Current Visit: Yes Status: Acute Hospital Course: Please see dictated H&P for intimate details of this patient's admission. Brief summary a pleasant 24-year-old 2 para 1 female 39 weeks gestation admitted to labor and delivery for requested induction of labor. Patient uncomplicated induction of labor on the vaginal delivery viable female . Please see dictated delivery note. day #1 patient's felt be stable for discharge home follow up with me in 6 weeks Procedures: Induction of labor and normal vaginal delivery Patient Condition at Discharge: Good Plan - Discharge Summary New Discharge Prescriptions: New Ibuprofen [Motrin] 600 mg PO Q6HR PRN #30 tab PRN Reason: Mild Pain Or Fever >= 100.5 Iron Ag/C/B12/Ca/Suc.acid/Stom [Multigen] 1 each PO DAILY #30 tab Discharge Medication List Ibuprofen [Motrin] 600 mg PO Q6HR PRN #30 tab 09/18/19 [Rx] Iron Ag/C/B12/Ca/Suc.acid/Stom [Multigen] 1 each PO DAILY #30 tab 09/18/19 [Rx] Follow up Appointment(s)/Referral(s): Carlos Jacobsen MD [STAFF PHYSICIAN] - 10/27/19 8:45 am Patient Instructions/Handouts: Vaginal Delivery (DC) Activity/Diet/Wound Care/Special Instructions: No intercourse or anything per vagina for 6 weeks. Please call if any fever, chills, excessive vaginal bleeding, and/or abdominal pain. Discharge Disposition: HOME SELF-CARE
[2019-09-18 07:35] LABS: Basophils % (A) 0 %; Eosinophils # (A) 0.1 k/uL (0-0.7); Eosinophils % (A) 1 %; HCT 28.3 % (34.0-46.0); HGB 9.5 gm/dL (11.4-16.0); Hypochromasia Slight; Lymphocytes # (A) 2.2 k/uL (1.0-4.8); Lymphocytes % (A) 22 %; MCH 27.5 pg (25.0-35.0); MCHC 33.4 g/dL (31.0-37.0); MCV 82.2 fL (80.0-100.0); Mean Platelet Volume 8.9; Monocytes # (A) 0.5 k/uL (0-1.0); Monocytes % (A) 4 %; Neutrophils # (A) 7.1 k/uL (1.3-7.7); Neutrophils % (A) 69 %; Platelet Count 142 k/uL (150-450); Poikilocytosis Moderate; RBC 3.45 m/uL (3.80-5.40); WBC 10.3 k/uL (3.8-10.6)
[2019-09-18 07:58] VITALS: BP 111/73; PULSE 74; RESP 16; TEMP 97.3
[2019-09-18] MEDS: SENNOSIDES-DOCUSATE SODIUM 1 EACH TAB PO SCH (08:50)
[2019-09-18] MEDS: IRON AG/C/B12/CA/SUC.ACID/STOM 1 EACH TAB PO SCH (08:51)
== END 2019-09-18 16:07 | disposition home or self-care (01) | DRG 807 ==
LOC: 4FBP 05:54
PROVIDERS: ADMIT Obstetrics & Gynecology; ATTEND Obstetrics & Gynecology
PROC: 10907ZC Drainage of Amniotic Fluid, Therapeutic from Products of Conception, Via Natural or Artificial Opening (ICD-10-PCS; principal; 2019-09-17)
PROC: 00HU33Z Insertion of Infusion Device into Spinal Canal, Percutaneous Approach (ICD-10-PCS; principal; 2019-09-17)
PROC: 10E0XZZ Delivery of Products of Conception, External Approach (ICD-10-PCS; principal; 2019-09-17)
DX: O99.284 Endocrine, nutritional and metabolic diseases complicating childbirth (principal); Z37.0 Single live birth; E28.2 Polycystic ovarian syndrome; O72.1 Other immediate postpartum hemorrhage; Z3A.39 39 weeks gestation of pregnancy; Z88.6 Allergy status to analgesic agent; Z82.49 Family history of ischemic heart disease and other diseases of the circulatory system
CPT/HCPCS: 85025; 86850; 86900; 86901

== ENCOUNTER → 2020-10-20 | Outpatient (CLI) | payer OTHER | END | disposition home or self-care (01) | LOC: LABWHC1 09:03 | PROVIDERS: ATTEND Internal Medicine | DX: E16.2 Hypoglycemia, unspecified (principal) | CPT/HCPCS: 36415; 82941 ==

== ENCOUNTER 2021-09-28 17:00 | Emergency (ER) | payer OTHER ==
[2021-09-28 17:13] VITALS: BP 134/83; PULSE 92; RESP 18; TEMP 98.8
--- NOTE | 2021-09-28 17:54 | ED ---
Abdominal Pain HPI - General Chief Complaint: Nausea/Vomiting/Diarrhea Stated Complaint: Poss Hernia/Nausea Time Seen by Provider: 09/28/21 17:20 Source: patient, RN notes reviewed Mode of arrival: ambulatory - History of Present Illness Initial Comments: This is a 26 year old female who presents to the emergency department with epigastric pain. States that for the last 3 days she has felt unusually full after eating just small amounts, which leads to nausea and vomiting. She has not taken any medication or tried other treatments for her symptoms. She has a history of diastasis recti from . She describes this as more of a discomfort than a pain. Also states that she can feel a bulge in her upper abdomen and is concerned about a possible hernia. Symptoms are not bothersome when she is not eating. She has also noticed acid reflux symptoms over the last 3 days associated with this epigastric pain. Other than eating, there are no modifying factors. The pain does not radiate. MD Complaint: abdominal pain Onset/Timin -: days(s) Location: periumbilical, epigastric Radiation: none Migration to: no migration Worsens With: eating Associated Symptoms: nausea, vomiting - Related Data Home Medications Medication Instructions Recorded Confirmed Norethindrone-E.estradiol-Iron 1 tab PO HS 09/28/21 09/28/21 [Junel Fe 1 mg-20 Mcg Tablet] Sertraline [Zoloft] 100 mg PO HS 09/28/21 09/28/21 Previous Rx's Medication Instructions Recorded Ondansetron Odt [Zofran Odt] 4 mg PO Q8HR PRN #20 tab 09/28/21 Allergies Allergy/AdvReac Type Severity Reaction Status Date / Time naproxen AdvReac Nausea & Verified 09/28/21 18:04 Vomiting Review of Systems ROS Statement: Those systems with pertinent positive or pertinent negative responses have been documented in the HPI. ROS Other: All systems not noted in ROS Statement are negative. Constitutional: Denies: fever, chills Respiratory: Denies: cough, dyspnea Cardiovascular: Denies: chest pain Gastrointestinal: Reports: abdominal pain, nausea, vomiting. Denies: diarrhea, constipation Genitourinary: Denies: urgency, dysuria Musculoskeletal: Denies: back pain Skin: Denies: rash, lesions Past Medical History Additional Past Medical History / Comment(s): Other HX: polycystic ovaries, epistaxis. tachycardia with this History of Any Multi-Drug Resistant Organisms: None Reported Past Surgical History: Adenoidectomy, Tonsillectomy Additional Past Surgical History / Comment(s): tonsillectomy/adenoidectomy with anterior/septal cauterization. Past Anesthesia/Blood Transfusion Reactions: No Reported Reaction Past Psychological History: Anxiety Smoking Status: Never smoker Past Alcohol Use History: None Reported Past Drug Use History: None Reported - Past Family History Brother(s) Family Medical History: Hypertension Additional Family Medical History / Comment(s): 1 kidney Father Family Medical History: Coronary Artery Disease (CAD) Mother Family Medical History: No Reported History Additional Family Medical History / Comment(s): heart murmur General Exam Limitations: no limitations General appearance: alert, in no apparent distress Head exam: Present: atraumatic, normocephalic, normal inspection Respiratory exam: Present: normal lung sounds bilaterally. Absent: respiratory distress, wheezes, rales, rhonchi, stridor Cardiovascular Exam: Present: regular rate, normal rhythm, normal heart sounds. Absent: systolic murmur, diastolic murmur, rubs, gallop, clicks GI/Abdominal exam: Present: normal bowel sounds, hernia (The hernia is easily reducible without any skin changes or evidence of incarceration or strangulation), other (Palpable bulge consistent with a ventral hernia in the upper abdomen that becomes more prominent with valsalva maneuver. ) Neurological exam: Present: alert, oriented X3, CN II-XII intact Psychiatric exam: Present: normal affect, normal mood Skin exam: Present: warm, dry, intact, normal color. Absent: rash Course Vital Signs 09/28/21 17:09 Temperature 98.8 F Pulse Rate 92 Respiratory 18 Rate Blood Pressure 134/83 O2 Sat by Pulse 98 Oximetry Medical Decision Making - Medical Decision Making This is a 26 year old female who presents to the emergency department with upper abdominal pain and postprandial fullness. Possible hernia palpated on exam and a CT scan of the abd/pelvis was obtained, confirming a ventral hernia. The hernia was easily reducible without any skin changes or evidence of strangulation or incarceration. CT scan also revealed a possible pancreatitis and lab work was obtained revealing no abnormalities. Will send rx for Zofran to the patient's pharmacy for control of symptoms. Outpatient referral placed to general surgery to discuss treatment options. Return precautions reviewed in depth, the patient is instructed to return to the emergency department if symptoms worsen or do not improve. Patient verbalized understanding. This case was discussed in detail with the attending ED physician. Presentation, findings, and treatment plan discussed in detail as well. - Lab Data Result diagrams: 09/28/21 19:36 09/28/21 19:36 Lab Results 09/28/21 09/28/21 09/28/21 Range/Units 17:41 17:41 19:36 WBC 7.6 (3.8-10.6) k/uL RBC 4.72 (3.80-5.40) m/uL Hgb 13.9 (11.4-16.0) gm/dL Hct 40.7 (34.0-46.0) % MCV 86.1 (80.0-100.0) fL MCH 29.5 (25.0-35.0) pg MCHC 34.3 (31.0-37.0) g/dL RDW 12.7 (11.5-15.5) % Plt Count 226 (150-450) k/uL MPV 7.3 Neutrophils % 56 % Lymphocytes % 33 % Monocytes % 6 % Eosinophils % 2 % Basophils % 1 % Neutrophils # 4.2 (1.3-7.7) k/uL Lymphocytes # 2.5 (1.0-4.8) k/uL Monocytes # 0.5 (0-1.0) k/uL Eosinophils # 0.2 (0-0.7) k/uL Basophils # 0.0 (0-0.2) k/uL Sodium (137-145) mmol/L Potassium (3.5-5.1) mmol/L Chloride (98-107) mmol/L Carbon Dioxide (22-30) mmol/L Anion Gap mmol/L BUN (7-17) mg/dL Creatinine (0.52-1.04) mg/dL Est GFR (CKD-EPI)AfAm (>60 ml/min/1.73 sqM) Est GFR (CKD-EPI)NonAf (>60 ml/min/1.73 sqM) Glucose (74-99) mg/dL Calcium (8.4-10.2) mg/dL Total Bilirubin (0.2-1.3) mg/dL AST (14-36) U/L ALT (4-34) U/L Alkaline Phosphatase (38-126) U/L Total Protein (6.3-8.2) g/dL Albumin (3.5-5.0) g/dL Amylase (30-110) U/L Lipase (23-300) U/L Urine Color Light Yellow Urine Appearance Clear (Clear) Urine pH 6.0 (5.0-8.0) Ur Specific Gar[place] 1.004 (1.001-1.035) Urine Protein Negative (Negative) Urine Glucose (UA) Negative (Negative) Urine Ketones Negative (Negative) Urine Blood Negative (Negative) Urine Nitrite Negative (Negative) Urine Bilirubin Negative (Negative) Urine Urobilinogen <2.0 (<2.0) mg/dL Ur Leukocyte Esterase Negative (Negative) Urine HCG, Qual Not Detected (Not Detectd) 09/28/21 Range/Units 19:36 WBC (3.8-10.6) k/uL RBC (3.80-5.40) m/uL Hgb (11.4-16.0) gm/dL Hct (34.0-46.0) % MCV (80.0-100.0) fL MCH (25.0-35.0) pg MCHC (31.0-37.0) g/dL RDW (11.5-15.5) % Plt Count (150-450) k/uL MPV Neutrophils % % Lymphocytes % % Monocytes % % Eosinophils % % Basophils % % Neutrophils # (1.3-7.7) k/uL Lymphocytes # (1.0-4.8) k/uL Monocytes # (0-1.0) k/uL Eosinophils # (0-0.7) k/uL Basophils # (0-0.2) k/uL Sodium 139 (137-145) mmol/L Potassium 3.9 (3.5-5.1) mmol/L Chloride 106 (98-107) mmol/L Carbon Dioxide 23 (22-30) mmol/L Anion Gap 10 mmol/L BUN 12 (7-17) mg/dL Creatinine 0.71 (0.52-1.04) mg/dL Est GFR (CKD-EPI)AfAm >90 (>60 ml/min/1.73 sqM) Est GFR (CKD-EPI)NonAf >90 (>60 ml/min/1.73 sqM) Glucose 88 (74-99) mg/dL Calcium 8.8 (8.4-10.2) mg/dL Total Bilirubin 0.4 (0.2-1.3) mg/dL AST 30 (14-36) U/L ALT 25 (4-34) U/L Alkaline Phosphatase 49 (38-126) U/L Total Protein 7.4 (6.3-8.2) g/dL Albumin 4.3 (3.5-5.0) g/dL Amylase 44 (30-110) U/L Lipase 76 (23-300) U/L Urine Color Urine Appearance (Clear) Urine pH (5.0-8.0) Ur Specific Gar[place] (1.001-1.035) Urine Protein (Negative) Urine Glucose (UA) (Negative) Urine Ketones (Negative) Urine Blood (Negative) Urine Nitrite (Negative) Urine Bilirubin (Negative) Urine Urobilinogen (<2.0) mg/dL Ur Leukocyte Esterase (Negative) Urine HCG, Qual (Not Detectd) Disposition Clinical Impression: Ventral hernia without obstruction or gangrene Disposition: HOME SELF-CARE Instructions (If sedation given, give patient instructions): Ventral Hernia (ED), Ventral Hernia Repair (DC) Additional Instructions: Return to the emergency department if symptoms worsen or do not improved. Referral placed to general surgery for follow up of ventral hernia to discuss treatment options. Is patient prescribed a controlled substance at d/c from ED?: No Referrals: Richmond Crooks MD [Primary Care Provider] - 1-2 days Keren Odell MD [STAFF PHYSICIAN] - 1-2 days
[2021-09-28 17:58] LABS: Appearance,Urine Clear (Clear); Bilirubin,Urine Negative (Negative); Blood,Urine Negative (Negative); Color,Urine Light Yellow; Glucose,Urine (UA) Negative (Negative); Ketones,Urine Negative (Negative); Leukocyte Esterase,Urine Negative (Negative); Nitrite,Urine Negative (Negative); Protein,Urine Negative (Negative); Specific Gravity,Urine 1.004 (1.001-1.035); Urobilinogen,Urine <2.0 mg/dL (<2.0)
--- NOTE | 2021-09-28 18:59 | CT ---
EXAMINATION TYPE: CT abdomen pelvis wo con DATE OF EXAM: 09/28/2021 COMPARISON: 02/02/2015 HISTORY: Epigastric pain CT DLP: 758 mGycm Automated exposure control for dose reduction was used. Images obtained from the diaphragm to the floor the pelvis without contrast. The lung bases are clear. There is no pleural effusion. Heart size is normal. Liver spleen stomach appear intact. The bile ducts are not dilated. There is some minimal retroperito josselyn edema in the upper abdomen. There is some mild thickening of the pancreas. Gallbladder appears normal. There is no adrenal mass. Kidneys have normal size. There is no hydroneph rosis. There is 2 mm calculus lower pole right kidney. There is no retroperitoneal adenopathy. Bladde r distends smoothly. There is no inguinal hernia. There is no free fluid in the pelvis. Uterus is ant everted. There is no evidence of pelvic mass. The proximal femurs and hip joints are intact. Sacroili ac joints are intact. I see no focal bone destruction. Lumbar vertebrae have normal spacing and align ment. There is no compression fracture. There is no evidence of focal bone destruction. Posterior william ments are intact. Appendix not clearly seen. No sign of thickened appendix. There is no ascites or free air. There is no evidence of a bowel obstruction. There is a mild broad-b ased midline ventral hernia containing fat and bowel. IMPRESSION: There is evidence of some celiac and mesenteric minimal adenopathy which is new compared to old exam. Pancreas is thickened compared to old exam. Mild pancreatitis is possible. Obesity related pancreati c hypertrophy also possible. Nonobstructing right renal calculus.
[2021-09-28 19:45] LABS: Basophils % (A) 1 %; Eosinophils # (A) 0.2 k/uL (0-0.7); Eosinophils % (A) 2 %; HCT 40.7 % (34.0-46.0); HGB 13.9 gm/dL (11.4-16.0); Lymphocytes # (A) 2.5 k/uL (1.0-4.8); Lymphocytes % (A) 33 %; MCH 29.5 pg (25.0-35.0); MCHC 34.3 g/dL (31.0-37.0); MCV 86.1 fL (80.0-100.0); Mean Platelet Volume 7.3; Monocytes # (A) 0.5 k/uL (0-1.0); Monocytes % (A) 6 %; Neutrophils # (A) 4.2 k/uL (1.3-7.7); Neutrophils % (A) 56 %; Platelet Count 226 k/uL (150-450); RBC 4.72 m/uL (3.80-5.40); RDW 12.7 % (11.5-15.5); WBC 7.6 k/uL (3.8-10.6)
[2021-09-28 19:54] LABS: ALT 25 U/L (4-34); AST 30 U/L (14-36); African American GFR (CKD) >90 (>60 ml/min/1.73 sqM); Albumin 4.3 g/dL (3.5-5.0); Alkaline Phosphatase 49 U/L (38-126); Amylase 44 U/L (30-110); Anion Gap 10 mmol/L; Blood Urea Nitrogen 12 mg/dL (7-17); Calcium 8.8 mg/dL (8.4-10.2); Carbon Dioxide 23 mmol/L (22-30); Chloride 106 mmol/L (98-107); Glucose 88 mg/dL (74-99); Lipase 76 U/L (23-300); Non-African American GFR(CKD) >90 (>60 ml/min/1.73 sqM); Potassium 3.9 mmol/L (3.5-5.1); Sodium 139 mmol/L (137-145); Total Bilirubin 0.4 mg/dL (0.2-1.3); Total Protein 7.4 g/dL (6.3-8.2)
== END 2021-09-28 20:23 | disposition home or self-care (01) ==
LOC: EC 17:00
DX: K43.9 Ventral hernia without obstruction or gangrene (principal); F41.9 Anxiety disorder, unspecified; Z88.5 Allergy status to narcotic agent
CPT/HCPCS: 36415; 74176; 80053; 81003; 81025; 82150; 83690; 85025; 99284

== ENCOUNTER 2023-01-08 16:02 | Emergency (ER) | payer OTHER ==
[2023-01-08] MEDS ORDERED: SODIUM CHLORIDE 0.9% 1,000 ML IV STA (16:10)
--- NOTE | 2023-01-08 16:20 | ED ---
Arrhythmia/Palpitations HPI - General Chief Complaint: Arrhythmia/Palpitations Stated Complaint: SOB, heart racing Time Seen by Provider: 01/08/23 16:09 Source: patient Mode of arrival: ambulatory Limitations: no limitations - History of Present Illness Initial Comments: Patient is a 27-year-old female presents the emergency department for shortness of breath. Symptoms started a couple hours prior to arrival. Patient states she was diagnosed with pneumonia on Sunday she recently finished Augmentin. States her symptoms have been improving until today. Patient felt short of breath mostly with exertion and felt as if her heart was racing. She has right sided sharp chest pain without radiation. She denies leg pain and swelling. She denies history of PE or DVT. Denies hormone replacement, long car rides, airplane travel, surgical interventions, known cancers, family history of clotting disorders, tobacco use. States multiple of her family members have history of pulmonary embolism. Patient does have history of SVT states she only had it during and has not had issues since. She has never seen a care worker. - Related Data Home Medications Medication Instructions Recorded Confirmed Amoxic-Pot Clav 875-125Mg 1 tab PO Q12HR 01/08/23 01/08/23 [Augmentin 875-125] Benzonatate [Tessalon Perles] 200 mg PO TID PRN 01/08/23 01/08/23 methocarbamoL [Methocarbamol] 750 mg PO Q4H PRN 01/08/23 01/08/23 Allergies Allergy/AdvReac Type Severity Reaction Status Date / Time No Known Allergies Allergy Verified 01/08/23 16:45 Review of Systems ROS Statement: Those systems with pertinent positive or pertinent negative responses have been documented in the HPI. ROS Other: All systems not noted in ROS Statement are negative. Past Medical History Additional Past Medical History / Comment(s): Other HX: polycystic ovaries, epistaxis. tachycardia with this History of Any Multi-Drug Resistant Organisms: None Reported Past Surgical History: Adenoidectomy, Tonsillectomy Additional Past Surgical History / Comment(s): tonsillectomy/adenoidectomy with anterior/septal cauterization. Past Anesthesia/Blood Transfusion Reactions: No Reported Reaction Past Psychological History: Anxiety Smoking Status: Never smoker Past Alcohol Use History: None Reported Past Drug Use History: None Reported - Past Family History Brother(s) Family Medical History: Hypertension Additional Family Medical History / Comment(s): 1 kidney Father Family Medical History: Coronary Artery Disease (CAD) Mother Family Medical History: No Reported History Additional Family Medical History / Comment(s): heart murmur General Exam Limitations: no limitations General appearance: alert, in no apparent distress Head exam: Present: atraumatic, normocephalic, normal inspection Neck exam: Present: normal inspection. Absent: tenderness, meningismus, lymphadenopathy Respiratory exam: Present: normal lung sounds bilaterally. Absent: respiratory distress, wheezes, rales, rhonchi, stridor Cardiovascular Exam: Present: normal rhythm, tachycardia, normal heart sounds. Absent: regular rate, systolic murmur, diastolic murmur, rubs, gallop, clicks Neurological exam: Present: alert, oriented X3, CN II-XII intact Psychiatric exam: Present: normal affect, normal mood Skin exam: Present: warm, dry, intact, normal color. Absent: rash Course Vital Signs 01/08/23 01/08/23 01/08/23 16:06 17:10 17:35 Temperature 98.4 F Pulse Rate 114 H 81 76 Respiratory 20 16 Rate Blood Pressure 129/85 125/82 125/86 O2 Sat by Pulse 100 100 Oximetry 01/08/23 01/08/23 17:51 18:46 Temperature 97.9 F 98.1 F Pulse Rate 80 72 Respiratory 16 12 Rate Blood Pressure 111/74 106/75 O2 Sat by Pulse 99 Oximetry Medical Decision Making - Medical Decision Making EKG taken at 16:15, interpreted by myself Sinus rhythm, possible atrial enlargement Ventricular rate 86, HI interval 136, QRS duration 93, QTC 395 Was pt. sent in by a medical professional or institution (, PA, [employer], urgent care, hospital, or skilled nursing...) When possible be specific @ -No Did you speak to anyone other than the patient for history (EMS, parent, family, police, friend...)? What history was obtained from this source @ -No Did you review nursing and triage notes (agree or disagree)? Why? @ -I reviewed and agree with nursing and triage notes Were old charts reviewed (outside hosp., previous admission, EMS record, old EKG, old radiological studies, urgent care reports/EKG's, skilled nursing records)? Report findings @ -No old charts were reviewed Differential Diagnosis (chest pain, altered mental status, abdominal pain women, abdominal pain men, vaginal bleeding, weakness, fever, dyspnea, syncope, headache, dizziness, GI bleed, back pain, seizure, CVA, palpatations, mental health)? @ -Differential Dyspnea: Coronary syndrome, arrhythmia, tamponade, asthma, COPD, pulmonary embolism, pneumonia, pneumothorax, pulmonary effusion, anaphylaxis, diabetic ketoacidosis, flailed chest, pulmonary contusion, diaphragmatic rupture, anemia, neuromuscular, this is not meant to be an all-inclusive list. EKG interpreted by me (3pts min.). @ -As above X-rays interpreted by me (1pt min.). @ -Negative for acute cardiopulmonary process CT interpreted by me (1pt min.). @ -Yes, no evidence of pulmonary embolism or pneumonia U/S interpreted by me (1pt. min.). @ -None done What testing was considered but not performed or refused? (CT, X-rays, U/S, labs)? Why? @ -None What meds were considered but not given or refused? Why? @ -None Did you discuss the management of the patient with other professionals (professionals i.e. , PA, [employer], lab, RT, psych nurse, social work faculty member, polisher dial, teacher, sewage reticulation drafting officer, outsole caser)? Give summary @ -No Was smoking cessation discussed for >3mins.? @ -No Was critical care preformed (if so, how long)? @ -No Were there social determinants of health that impacted care today? How? (Homelessness, low income, unemployed, alcoholism, drug addiction, transportation, low edu. Level, literacy, decrease access to med. care, senior care, rehab)? @ -No Was there de-escalation of care discussed even if they declined (Discuss DNR or withdrawal of care, Hospice)? DNR status @ -No What co-morbidities impacted this encounter? (DM, HTN, Smoking, COPD, CAD, Cancer, CVA, ARF, Chemo, Hep., AIDS, mental health diagnosis, sleep apnea, morbid obesity)? @ -None Was patient admitted / discharged? Hospital course, mention meds given and route, prescriptions, significant lab abnormalities, going to OR and other pertinent info. @ -Patient presenting for shortness of breath and palpitations.Upon arrival patient is tachycardic at 114. She is well-appearing and in no apparent distress. No hypoxia. EKG shows no evidence of acute ischemia. Laboratory studies obtained. D-dimer is minimally elevated at 0.58. Troponin within normal limits. CT angiogram of the chest did rule out pulmonary embolism and pneumonia. Patient given fluid bolus for her tachycardia resolved and remained stable during visit. Results discussed with patient. Patient stable medical condition for discharge. With her history of SVT she may benefit from Holter monitor. Patient is referred to care worker today. Undiagnosed new problem with uncertain prognosis? @ -No Drug Therapy requiring intensive monitoring for toxicity (Heparin, Nitro, Insulin, Cardizem)? @ -No Were any procedures done? @ -No Diagnosis/symptom? @ -SOB, palpitations Acute, or Chronic, or Acute on Chronic? @ -acute Uncomplicated (without systemic symptoms) or Complicated (systemic symptoms)? @ -uncomplicated Side effects of treatment? @ -No Exacerbation, Progression, or Severe Exacerbation? @ -No Poses a threat to life or bodily function? How? (Chest pain, [place], [place], pneumonia, PE, COPD, DKA, ARF, appy, cholecystitis, CVA, Diverticulitis, Homicidal, Suicidal, threat to staff... and all critical care pts) @ -No Dr. Murillo is my attending - Lab Data Result diagrams: 01/08/23 16:35 01/08/23 16:35 Lab Results 01/08/23 01/08/23 01/08/23 Range/Units 16:35 16:35 16:35 WBC 5.0 (3.8-10.6) k/uL RBC 4.59 (3.80-5.40) m/uL Hgb 13.1 (11.4-16.0) gm/dL Hct 37.0 (34.0-46.0) % MCV 80.7 (80.0-100.0) fL MCH 28.6 (25.0-35.0) pg MCHC 35.5 (31.0-37.0) g/dL RDW 13.0 (11.5-15.5) % Plt Count 210 (150-450) k/uL MPV 8.5 Neutrophils % 51 % Lymphocytes % 38 % Monocytes % 6 % Eosinophils % 1 % Basophils % 0 % Neutrophils # 2.6 (1.3-7.7) k/uL Lymphocytes # 1.9 (1.0-4.8) k/uL Monocytes # 0.3 (0-1.0) k/uL Eosinophils # 0.1 (0-0.7) k/uL Basophils # 0.0 (0-0.2) k/uL Hyperchromasia Slight PT 10.2 (9.0-12.0) sec INR 1.0 (<1.2) APTT 23.2 (22.0-30.0) sec D-Dimer 0.58 (<0.60) mg/L FEU Sodium (137-145) mmol/L Potassium (3.5-5.1) mmol/L Chloride (98-107) mmol/L Carbon Dioxide (22-30) mmol/L Anion Gap mmol/L BUN (7-17) mg/dL Creatinine (0.52-1.04) mg/dL Est GFR (CKD-EPI)AfAm (>60 ml/min/1.73 sqM) Est GFR (CKD-EPI)NonAf (>60 ml/min/1.73 sqM) Glucose (74-99) mg/dL Calcium (8.4-10.2) mg/dL Magnesium (1.6-2.3) mg/dL Total Bilirubin (0.2-1.3) mg/dL AST (14-36) U/L ALT (4-34) U/L Alkaline Phosphatase (38-126) U/L Troponin I (0.000-0.034) ng/mL Total Protein (6.3-8.2) g/dL Albumin (3.5-5.0) g/dL TSH (0.465-4.680) mIU/L Urine Color Yellow Urine Appearance Cloudy H (Clear) Urine pH 5.5 (5.0-8.0) Ur Specific Lamar 1.023 (1.001-1.035) Urine Protein Trace H (Negative) Urine Glucose (UA) Negative (Negative) Urine Ketones Negative (Negative) Urine Blood Trace H (Negative) Urine Nitrite Negative (Negative) Urine Bilirubin Negative (Negative) Urine Urobilinogen <2.0 (<2.0) mg/dL Ur Leukocyte Esterase Small H (Negative) Urine RBC 5 (0-5) /hpf Urine WBC 3 (0-5) /hpf Ur Squamous Epith Cells 10 H (0-4) /hpf Uric Acid Crystals Moderate H (None) /hpf Urine Bacteria Rare H (None) /hpf Urine Mucus Moderate H (None) /hpf 01/08/23 01/08/23 Range/Units 16:35 16:35 WBC (3.8-10.6) k/uL RBC (3.80-5.40) m/uL Hgb (11.4-16.0) gm/dL Hct (34.0-46.0) % MCV (80.0-100.0) fL MCH (25.0-35.0) pg MCHC (31.0-37.0) g/dL RDW (11.5-15.5) % Plt Count (150-450) k/uL MPV Neutrophils % % Lymphocytes % % Monocytes % % Eosinophils % % Basophils % % Neutrophils # (1.3-7.7) k/uL Lymphocytes # (1.0-4.8) k/uL Monocytes # (0-1.0) k/uL Eosinophils # (0-0.7) k/uL Basophils # (0-0.2) k/uL Hyperchromasia PT (9.0-12.0) sec INR (<1.2) APTT (22.0-30.0) sec D-Dimer (<0.60) mg/L FEU Sodium 141 (137-145) mmol/L Potassium 3.5 (3.5-5.1) mmol/L Chloride 104 (98-107) mmol/L Carbon Dioxide 28 (22-30) mmol/L Anion Gap 9 mmol/L BUN 13 (7-17) mg/dL Creatinine 0.69 (0.52-1.04) mg/dL Est GFR (CKD-EPI)AfAm >90 (>60 ml/min/1.73 sqM) Est GFR (CKD-EPI)NonAf >90 (>60 ml/min/1.73 sqM) Glucose 127 H (74-99) mg/dL Calcium 9.3 (8.4-10.2) mg/dL Magnesium 1.8 (1.6-2.3) mg/dL Total Bilirubin 0.5 (0.2-1.3) mg/dL AST 22 (14-36) U/L ALT 17 (4-34) U/L Alkaline Phosphatase 57 (38-126) U/L Troponin I <0.012 (0.000-0.034) ng/mL Total Protein 7.1 (6.3-8.2) g/dL Albumin 4.3 (3.5-5.0) g/dL TSH 0.967 (0.465-4.680) mIU/L Urine Color Urine Appearance (Clear) Urine pH (5.0-8.0) Ur Specific Lamar (1.001-1.035) Urine Protein (Negative) Urine Glucose (UA) (Negative) Urine Ketones (Negative) Urine Blood (Negative) Urine Nitrite (Negative) Urine Bilirubin (Negative) Urine Urobilinogen (<2.0) mg/dL Ur Leukocyte Esterase (Negative) Urine RBC (0-5) /hpf Urine WBC (0-5) /hpf Ur Squamous Epith Cells (0-4) /hpf Uric Acid Crystals (None) /hpf Urine Bacteria (None) /hpf Urine Mucus (None) /hpf Disposition Clinical Impression: SOB (shortness of breath), Palpitations Disposition: HOME SELF-CARE Condition: Good Instructions (If sedation given, give patient instructions): Heart Palpitations (ED), Shortness of Breath (ED) Additional Instructions: Please follow-up with your primary care provider and cardiology in 1-2 days. Return to the emergency department if you experience new, concerning, or worsening symptoms. Is patient prescribed a controlled substance at d/c from ED?: No Referrals: Richmond Crooks MD [Primary Care Provider] - 1-2 days Warren Fernandez MD [STAFF PHYSICIAN] - 1-2 days Time of Disposition: 18:05
[2023-01-08 16:44] LABS: Basophils % (A) 0 %; Eosinophils # (A) 0.1 k/uL (0-0.7); Eosinophils % (A) 1 %; HGB 13.1 gm/dL (11.4-16.0); Hyperchromasia Slight; Lymphocytes # (A) 1.9 k/uL (1.0-4.8); Lymphocytes % (A) 38 %; MCH 28.6 pg (25.0-35.0); MCHC 35.5 g/dL (31.0-37.0); MCV 80.7 fL (80.0-100.0); Mean Platelet Volume 8.5; Monocytes # (A) 0.3 k/uL (0-1.0); Monocytes % (A) 6 %; Neutrophils # (A) 2.6 k/uL (1.3-7.7); Neutrophils % (A) 51 %; Platelet Count 210 k/uL (150-450); RBC 4.59 m/uL (3.80-5.40)
[2023-01-08 16:59] LABS: Appearance,Urine Cloudy (Clear); Bacteria,Urine Rare /hpf; Bilirubin,Urine Negative (Negative); Blood,Urine Trace (Negative); Color,Urine Yellow; Glucose,Urine (UA) Negative (Negative); Ketones,Urine Negative (Negative); Leukocyte Esterase,Urine Small (Negative); Mucus,Urine Moderate /hpf; Nitrite,Urine Negative (Negative); PH, Urine 5.5 (5.0-8.0); Partial Thromboplastin Time 23.2 sec (22.0-30.0); Protein,Urine Trace (Negative); Prothrombin Time 10.2 sec (9.0-12.0); RBC,Urine 5 /hpf (0-5); Specific Gravity,Urine 1.023 (1.001-1.035); Squamous Epithelial Cell,Urine 10 /hpf (0-4); Uric Acid Crystals,Urine Moderate /hpf; Urobilinogen,Urine <2.0 mg/dL (<2.0); WBC,Urine 3 /hpf (0-5)
[2023-01-08 17:00] LABS: ALT 17 U/L (4-34); AST 22 U/L (14-36); African American GFR (CKD) >90 (>60 ml/min/1.73 sqM); Albumin 4.3 g/dL (3.5-5.0); Alkaline Phosphatase 57 U/L (38-126); Anion Gap 9 mmol/L; Blood Urea Nitrogen 13 mg/dL (7-17); Calcium 9.3 mg/dL (8.4-10.2); Carbon Dioxide 28 mmol/L (22-30); Chloride 104 mmol/L (98-107); Glucose 127 mg/dL (74-99); Magnesium 1.8 mg/dL (1.6-2.3); Non-African American GFR(CKD) >90 (>60 ml/min/1.73 sqM); Potassium 3.5 mmol/L (3.5-5.1); Sodium 141 mmol/L (137-145); Total Bilirubin 0.5 mg/dL (0.2-1.3); Total Protein 7.1 g/dL (6.3-8.2)
--- NOTE | 2023-01-08 17:02 | XR ---
EXAMINATION TYPE: XR chest 2V DATE OF EXAM: 01/08/2023 4:55 PM COMPARISON: None TECHNIQUE: XR chest 2V Frontal and lateral views of the chest. CLINICAL INDICATION:Female, 27 years old with history of dysrhythmia; FINDINGS: Lungs/Pleura: There is no evidence of pleural effusion, focal consolidation, or pneumothorax. Pulmonary vascularity: Unremarkable. Heart/mediastinum: Cardiomediastinal silhouette is unremarkable. Musculoskeletal: No acute osseous pathology. IMPRESSION: No acute cardiopulmonary disease/process.
--- NOTE | 2023-01-08 17:43 | CT ---
EXAMINATION TYPE: CT chest angio for PE CT DLP: 258.3 mGycm, Automated exposure control for dose reduction was used. DATE OF EXAM: 01/08/2023 5:33 PM COMPARISON: Chest radiograph from same day. CLINICAL INDICATION:Female, 27 years old with history of SOB elevated dimer; SOB elevated dimer and p alpitations TECHNIQUE/CONTRAST: CTA scan of the thorax is performed with IV Contrast, patient injected with 65 mL of Isovue 370, pulm onary embolism protocol. MIP images are created and reviewed these are created on a separate worksta tion.. FINDINGS: Pulmonary Artery: There is no evidence for a filling defect within the pulmonary vasculature to sugge st acute pulmonary embolism. The pulmonary artery is of normal size. Lungs/Pleura: No evidence of focal consolidation, pleural effusion or pneumothorax. Airway: Large airways are patent. Heart: Heart is within normal limits for size. Vasculature: No evidence of aortic aneurysm. Mediastinum: No gross evidence of adenopathy. Musculoskeletal: No acute osseous abnormalities Soft Tissues: Unremarkable. Lower neck: No significant findings. Upper Abdomen: No significant findings. IMPRESSION: No evidence of pulmonary embolism.
[2023-01-08 18:48] VITALS: BP 106/75; PULSE 72; RESP 12; TEMP 98.1
== END 2023-01-08 18:48 | disposition home or self-care (01) ==
LOC: EC 16:02
DX: R06.02 Shortness of breath (principal); R00.2 Palpitations; F41.9 Anxiety disorder, unspecified; Z79.899 Other long term (current) drug therapy
CPT/HCPCS: 36415; 85379; 80053; 84443; 83735; 84484; 85025; 85610; 85730; 81001; 71046; 71275; 99285; 96360; 96361; Q9967

== ENCOUNTER → 2023-12-14 | Day surgery (SDC) | payer MEDICAID, OTHER ==
--- NOTE | 2023-12-14 21:04 | CT ---
EXAMINATION TYPE: CT abdomen pelvis wo con CT DLP: 442 mGycm, Automated exposure control for dose reduction was used. DATE OF EXAM: 12/14/2023 8:51 PM COMPARISON: 09/28/2021 CLINICAL INDICATION:Female, 28 years old with history of L FLANK PAIN; Left flank pain x 5 days TECHNIQUE: Axial CT abdomen pelvis wo con;Sagittal and coronal reformats were created on a separate workstation. Contrast used: mL of , (none if empty) Oral contrast used: without Oral Contrast (none if empty) FINDINGS: LOWER CHEST: Unremarkable ABDOMEN LIVER: Unremarkable GALLBLADDER AND BILE DUCTS: Unremarkable. PANCREAS: Unremarkable. SPLEEN: Unremarkable. ADRENAL GLANDS: Unremarkable. KIDNEYS AND URETERS: Left hydronephrosis secondary obstructing 3 mm calculus in the distal ureter. Right nonobstructing renal calculi measuring 3 mm. No right hydronephrosis. PELVIS BLADDER: Unremarkable REPRODUCTIVE: Arcuate morphology to the uterine fundus. ABDOMEN & PELVIS STOMACH AND BOWEL: No evidence of bowel obstruction. PERITONEUM/RETROPERITONEUM: No evidence of pneumoperitoneum or free fluid. VASCULATURE: No evidence of aortic aneurysm. MUSCULOSKELETAL: No acute osseous abnormalities LYMPH NODES: No gross evidence for lymphadenopathy. SOFT TISSUE/ABDOMINAL WALL: Fat-containing buccal hernia. IMPRESSION: Mild left hydronephrosis with ureteral calculus measuring 3 mm at the distal ureter. Additional nonob structing right renal calculus.
== END ==
LOC: EC 20:42
PROVIDERS: ATTEND Emergency Medicine
DX: N13.2 Hydronephrosis with renal and ureteral calculous obstruction (principal)
CPT/HCPCS: 74176